=== PATIENT | male | born 2000 | race Caucasian/White ===

== ENCOUNTER 2024-05-09 09:43 | Emergency (ER) | payer OTHER ==
[2024-05-09] MEDS ORDERED: LIDOCAINE 2% W/EPI 1:200,000 MPF 20 ML VIAL IM ONE (09:58)
--- NOTE | 2024-05-09 10:18 | EDPHYS ---
Physician Documentation [facility] Name: Alejandro June Age: 24 yrs Sex: Male : 2000 Arrival Date: 05/09/2024 Time: 09:43 Bed 5 Private MD: ED Physician Timur Anderson HPI: 05/09 09:57 This 24 yrs old Male presents to ER via Unassigned with complaints of ec2 Headache, Dizziness. 09:57 Patient arrives today for evaluation of a headache. Patient reports that he had a lump ec2 on his head and subsequently is enlarged and become painful. Patient reports some lightheadedness associated with it. Patient reports that the lightheadedness associated with pressing on the area when he wears a hat. Historical: - Allergies: 09:54 tramadol; aa5 09:54 "ADHD medicine"; aa5 - PMHx: 09:54 ADHD; "hole in heart bicuspid aortic valve"; aa5 - Immunization history:: Adult Immunizations unknown. - Infectious Disease History:: Denies. - Social history:: Smoking status: Reported history of juuling and/or vaping. ROS: 09:57 Constitutional: as per hpi ec2 Exam: 09:57 Constitutional: GEN: NAD Head: atraumatic Eyes: EOMI Ears: External ears are ec2 normal. CV: regular rate LUNGS: no respiratory distress ABD: non-distended SKIN: Small 2 x 2 cm abscess noted to the left lateral head, fluctuance appreciated MSK: no evidence of trauma Vital Signs: 09:46 BP 130 / 86; Pulse 99; Resp 18 S; Temp 97.8(TE); Pulse Ox 99% on R/A; Weight 70.31 kg aa5 (R); Height 5 ft. 6 in. (R); 09:46 Body Mass Index 25.02 (70.31 kg, 167.64 cm) aa5 Procedures: 10:16 I \\T\\ D: Incision and drainage was performed for an abscess of the left scalp Prepped ec2 with Betadine, Anesthetized with ml's 2% Lidocaine with epinephrine. 2 ml's 2% Lidocaine with epinephrine. Incised with #11 blade. Drained moderate amount purulent fluid. Loculations removed. Dressing: sterile 4x4 gauze, the patient tolerated the procedure well. MDM: 09:52 Medical Screening Exam initiated ec2 09:58 Data reviewed: vital signs, nurses notes. ED course: Patient arrives today for ec2 evaluation of headache along with lightheadedness and fluctuance on his head. Examination yields skin findings as above. Will anesthetize the area, drainage. Suspect abscess.. 10:17 ED course: Abscess incised with fluid return. Will discharge home. Turn precautions ec2 given.. Administered Medications: 10:10 Drug: Lidocaine-Epinephrine Infiltration -2 % (1:100,000) 10 ml Infiltration once; to iw bedside Route: Infiltration; Disposition Summary: 05/09/24 10:17 Discharge Ordered Notes: Location: Home ec2 Condition: Stable ec2 Diagnosis - Cutaneous abscess of head [any part, except face] ec2 Followup: ec2 - With: Private Physician - When: - Reason: Re-evaluation by your physician Discharge Instructions: - Discharge Summary Sheet ec2 - Skin Abscess, [id number] ec2 Forms: - Work release form bc6 - Medication Reconciliation Form ec2 - Antibiotic Education ec2 - Prescription Opioid Use ec2 - Patient Portal Instructions ec2 - Leadership Thank You Letter ec2 Signatures: Rossi Sagastume, RN RN iw Ursula Rodriguez RN RN aa5 Timur Anderson MD MD ec2
--- NOTE | 2024-05-09 10:18 | ER ---
Nurse's Notes [facility] Name: Alejandro June Age: 24 yrs Sex: Male : 2000 Arrival Date: 05/09/2024 Time: 09:43 Bed 5 Private MD: Diagnosis: Cutaneous abscess of head [any part, except face] Presentation: 05/09 09:46 Chief complaint: Patient states: "I've had a lump on my head for as long as I can aa5 remember and last week it started bothering me and giving me pain". Pt also c/o feeling lightheaded today. 09:46 Coronavirus screen: At this time, the client does not indicate any symptoms associated aa5 with coronavirus-19. Ebola Screen: Patient denies travel to an Ebola-affected area in the 21 days before illness onset. Initial Sepsis Screen: Does the patient meet any 2 criteria? HR > 90 bpm. Does the patient have a suspected source of infection? No. Patient's initial sepsis screen is negative. Risk Assessment: Do you want to hurt yourself or someone else? Patient reports no desire to harm self or others. Onset of symptoms was April 2024. 09:46 Method Of Arrival: Ambulatory aa5 09:46 Acuity: RHEA 4 aa5 Historical: - Allergies: 09:54 tramadol; aa5 09:54 "ADHD medicine"; aa5 - PMHx: 09:54 ADHD; "hole in heart bicuspid aortic valve"; aa5 - Immunization history:: Adult Immunizations unknown. - Infectious Disease History:: Denies. - Social history:: Smoking status: Reported history of juuling and/or vaping. Vital Signs: 09:46 BP 130 / 86; Pulse 99; Resp 18 S; Temp 97.8(TE); Pulse Ox 99% on R/A; Weight 70.31 kg aa5 (R); Height 5 ft. 6 in. (R); 09:46 Body Mass Index 25.02 (70.31 kg, 167.64 cm) aa5 ED Course: 09:46 Patient arrived in ED. al6 09:46 Arm band placed on Patient placed in an exam room, on a stretcher. aa5 09:49 Timur Anderson MD is Attending Physician. ec2 09:58 Triage completed. aa5 10:28 Rossi Sagastume, RN is Primary Nurse. iw Administered Medications: 10:10 Drug: Lidocaine-Epinephrine Infiltration -2 % (1:100,000) 10 ml Infiltration once; to iw bedside Route: Infiltration; Outcome: 10:17 Discharge ordered by . ec2 10: Discharged to home ambulatory, iw 10: Condition: good 10: Discharge instructions given to patient, Instructed on discharge instructions, follow up and referral plans. Demonstrated understanding of instructions, follow-up care, 10:29 Patient left the ED. iw Signatures: Rossi Sagastume, RN RN Ursula Rodriguez RN RN aa5 Timur Anderson MD MD ec2 Lida Rico al6
[2024-05-09 10:45] VITALS: BP 130/86; TEMP 97.8; O2SAT 99
== END 2024-05-09 10:29 | disposition home or self-care (01) ==
LOC: ER 09:43
PROC: 0H90XZZ Drainage of Scalp Skin, External Approach (ICD-10-PCS; principal; 2024-05-09)
DX: L02.811 Cutaneous abscess of head [any part, except face] (principal)
CPT/HCPCS: 99283